=== PATIENT | male | born 1970 | race Caucasian/White ===

== ENCOUNTER 2018-09-24 21:44 | Inpatient (IN) | payer OTHER ==
[~2018-09-24] VITALS: Ht 180.3 cm; Wt 88.6 kg
[2018-09-24] MEDS ORDERED: LIDOCAINE 1%/EPI 1:100,000 20 ML VIAL. ONE (21:53)
[2018-09-24] MEDS ORDERED: LIDOCAINE 2%/EPI 1:100,000 20 ML VIAL. ONE (21:54)
[2018-09-24 22:37] LABS: BASO % 1 % (0-3); EOS # 0.1 x10^3/uL (0.0-0.7); EOS % 1 % (0-3); HEMATOCRIT 42.1 % (39.0-53.0); LYMPH # 1.7 x10^3/uL (1.0-4.8); LYMPH % 19 % (24-48); MEAN CORPUSCULAR HEMOGLOBIN 32 pg (25-35); MEAN CORPUSCULAR HGB CONC 33 g/dL (31-37); MEAN CORPUSCULAR VOLUME 95 fL (79-100); MONO # 0.7 x10^3/uL (0.0-1.1); MONO % 8 % (0-9); NEUT # 6.4 x10^3uL (1.8-7.7); NEUT % 72 % (31-73); PLATELET COUNT 205 x10^3/uL (140-400); RED BLOOD COUNT 4.43 x10^6/uL (4.30-5.70)
[2018-09-24 22:51] LABS: CALCIUM 9.3 mg/dL (8.5-10.1); CREATININE 0.9 mg/dL (0.7-1.3); DIRECT BILIRUBIN 0.1 mg/dL (0.0-0.2); GFR 89.7; POTASSIUM 3.5 mmol/L (3.5-5.1); TOTAL BILIRUBIN 0.2 mg/dL (0.2-1.0); TOTAL PROTEIN 7.9 g/dL (6.4-8.2)
[2018-09-24] MEDS ORDERED: IV RINGERS SOLUTION,LACTATED 1,000 ML IV SCH (23:00)
[2018-09-24] MEDS ORDERED: LORazepam 2 MG/ML VIAL IV ONE (23:00)
[2018-09-24] MEDS ORDERED: LIDOCAINE 2% 20 ML VIAL. IJ ONE (23:00)
[2018-09-24] MEDS ORDERED: DIPHTH,PERTUSS(ACELL),TET TOX 0.5 ML DISP.SYRIN. VAX IM ONE (23:00)
[2018-09-24] MEDS ORDERED: LIDOCAINE 2%/EPI 1:100,000 20 ML VIAL. IJ ONE (23:00)
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
[2018-09-24 23:15] LABS: BACTERIA,URINE 0 /HPF (0-FEW); BILIRUBIN,URINE NEG (NEG); CLARITY,URINE CLEAR; COLOR,URINE YELLOW; GLUCOSE,URINE NEG (NEG); NITRITE,URINE NEG (NEG); RBC,URINE 0 /HPF (0-2); SQUAMOUS EPITHELIAL CELL,UR OCC /LPF; UROBILINOGEN,URINE 0.2 mg/dL (0.2 mg/dL); WBC,URINE OCC /HPF (0-4)
[2018-09-24 23:16] LABS: BARBITURATES NEG (NEG); BENZODIAZEPINES NEG (NEG); CANNABINOIDS NEG (NEG); COCAINE NEG (NEG); METHADONE NEG (NEG); OPIATES NEG (NEG); PHENCYCLIDINE NEG (NEG)
[2018-09-24 23:19] LABS: AMPHETAMINE/METHAMPHETAMINE NEG (NEG)
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
[2018-09-24] MEDS ORDERED: cefTRIAXone SODIUM 1 GM VIAL ONE (23:56)
[2018-09-24] MEDS ORDERED: IV NORMAL SALINE 50ML 50 ML ONE (23:56)
[2018-09-25] VITALS (8 sets, daily range): BP systolic 97–144; BP diastolic 61–83
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
[2018-09-25] MEDS ORDERED: ACETAMINOPHEN 325 MG TABLET PO PRN (01:30)
[2018-09-25] MEDS ORDERED: ONDANSETRON PF 4 MG/2 ML VIAL. IV PRN (01:30)
[2018-09-25] MEDS ORDERED: LORazepam 2 MG/ML VIAL IV PRN (01:30)
[2018-09-25] MEDS ORDERED: MVI, ADULT NO.4 WITH VIT K 10 ML, FOLIC ACID SYRINGE for ER 1 MG, THIAMINE INJ 100 MG i... IV ONE ×4 (02:00)
[2018-09-25] MEDS ORDERED: MVI, ADULT NO.4 WITH VIT K 10 ML VIAL IV ONE (03:08)
--- NOTE | 2018-09-25 04:27 | EKG ---
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 Electronically Signed On 09-25-2018 10:12:53 [employer] by Artemio Joyce
[2018-09-25 04:49] LABS: ALBUMIN 3.2 g/dL (3.4-5.0); ALBUMIN/GLOBULIN RATIO 0.9 (1.0-1.7); CALCIUM 8.5 mg/dL (8.5-10.1); GFR 79.4; POTASSIUM 3.6 mmol/L (3.5-5.1); TOTAL BILIRUBIN 0.2 mg/dL (0.2-1.0); TOTAL PROTEIN 6.6 g/dL (6.4-8.2)
[2018-09-25] MEDS: IV RINGERS SOLUTION,LACTATED 1,000 ML IV SCH ×3 (06:01→14:00)
[2018-09-25] MEDS ORDERED: ATOR20TA58 PO (07:27)
[2018-09-25] MEDS ORDERED: ASPI81TA59 PO (07:27)
[2018-09-25] MEDS ORDERED: NEBI5TAB2 PO (07:27)
[2018-09-25] MEDS ORDERED: LISI2.5T PO (07:28)
[2018-09-25] MEDS ORDERED: CLOP75TA57 PO (07:29)
[2018-09-25] MEDS: NEOMY/BACITR/POLYMYXIN OINT PACKET. TP SCH ×2 (09:28→11:55)
[2018-09-25] MEDS: CEPHALEXIN 250 MG CAPSULE PO SCH ×2 (09:28→14:29)
[2018-09-25] MEDS ORDERED: METOPROLOL TART IMMED RELEASE 25 MG TABLET PO SCH (10:00)
[2018-09-25] MEDS ORDERED: LISINOPRIL 2.5 MG TABLET PO SCH (10:15)
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
[2018-09-25] MEDS ORDERED: ATORVASTATIN CALCIUM 20 MG TABLET PO SCH (21:00)
[2018-09-26] MEDS ORDERED: LISINOPRIL 2.5 MG TABLET PO SCH (09:00)
== END 2018-09-25 17:21 | DRG 563 ==
LOC: ER 21:44 → EEVIPCON 21:44 → ICU 09-25 01:00 → EEVIPCON 09-25 01:00
PROVIDERS: ADMIT Internal Medicine; ATTEND Internal Medicine
DX: S62.344A Nondisplaced fracture of base of fourth metacarpal bone, right hand, initial encounter for closed fracture (principal); S02.2XXA Fracture of nasal bones, initial encounter for closed fracture; E78.5 Hyperlipidemia, unspecified; F12.90 Cannabis use, unspecified, uncomplicated; F15.90 Other stimulant use, unspecified, uncomplicated; I10 Essential (primary) hypertension; I25.10 Atherosclerotic heart disease of native coronary artery without angina pectoris; R56.9 Unspecified convulsions; I25.2 Old myocardial infarction; S00.83XA Contusion of other part of head, initial encounter; Z79.82 Long term (current) use of aspirin; Z79.899 Other long term (current) drug therapy; Z87.891 Personal history of nicotine dependence; Z90.49 Acquired absence of other specified parts of digestive tract; Z95.5 Presence of coronary angioplasty implant and graft; Z79.02 Long term (current) use of antithrombotics/antiplatelets; F10.10 Alcohol abuse, uncomplicated; W18.39XA Other fall on same level, initial encounter; Y93.89 Activity, other specified; Y92.89 Other specified places as the place of occurrence of the external cause; Y99.8 Other external cause status
CPT/HCPCS: 12013; 29125; 36415; 70450; 70486; 71046; 72125; 73130; 80048; 80053; 80076; 80307; 81001; 82550; 83690; 83735; 83880; 84443; 84484; 85025; 85379; 85610; 85730; 87641; 90471; 90715; 93005; 96365; 96375; G0480; J0696; J2060; J7120; 99285-25